=== PATIENT | female | born 1975 | race Caucasian/White ===

== ENCOUNTER → 2019-01-31 12:53 | Outpatient (CLI) | payer BC, SELFPAY ==
--- NOTE | 2019-01-31 | DI.RAD.S_ITS ---
PROCEDURE: XR FOOT LT MIN 3V INDICATIONS: LEFT FOOT PAIN TECHNIQUE: 3 views of the foot were acquired. COMPARISON: None. FINDINGS: Bones: No fractures or dislocations. No suspicious bony lesions. Soft tissues: No tibiotalar joint effusion. Achilles tendon appears normal. IMPRESSION: Normal left foot. Dictated by: Casandra Ortega M.D. on 01/31/2019 at 14:43 Approved by: Casandra Ortega M.D. on 01/31/2019 at 14:44
== END ==
PROVIDERS: PCP Internal Medicine; Visit Provider Internal Medicine
DX: M79.672 Pain in left foot (principal)
CPT/HCPCS: 73630

== ENCOUNTER → 2021-07-30 10:01 | Outpatient (CLI) | payer BC, SELFPAY ==
--- NOTE | 2021-07-30 | DI.RAD.S_ITS ---
PROCEDURE: XR CHEST 2V INDICATIONS: COVID-19 TECHNIQUE: 2 views of the chest were acquired. COMPARISON: None. FINDINGS: Surgical changes and devices: None. Lungs and pleura: Patchy ground-glass airspace opacity in the lung bases. No pleural effusions or pneumothorax. Mediastinum: Mediastinal contours are normal. Heart size is normal. Bones and chest wall: No suspicious bony abnormalities. Soft tissues appear unremarkable. IMPRESSION: Patchy ground-glass airspace opacities in the lung bases, findings would be consistent with viral pneumonia Dictated by: Wilver Ortega M.D. on 07/30/2021 at 10:38 Approved by: Wilver Ortega M.D. on 07/30/2021 at 10:46
== END ==
PROVIDERS: PCP Internal Medicine; Referring Provider Internal Medicine; Visit Provider Internal Medicine
DX: E88.01 Alpha-1-antitrypsin deficiency (principal); U07.1 COVID-19
CPT/HCPCS: 71046